=== PATIENT | male | born 1945 | race Caucasian/White ===

== ENCOUNTER 2017-11-06 11:14 | Outpatient (CLI) | payer MEDICARE ==
--- NOTE | 2017-11-06 12:47 | XRAY Report ---
Procedure Date: 11/06/2017 Accession Number: [id number] / [id number] Procedure: XR - Foot 3 View BILAT CPT Code: FULL RESULT: EXAM: Foot 3 View BILAT DATE: 11/06/2017 11:25 AM CLINICAL HISTORY: BL FOOT PAIN TECHNIQUE: 3 views each foot COMPARISON: 04/28/2016 right foot FINDINGS: Right foot: First MTP degenerative changes mildly progressed compared with prior. Increasing soft tissue swelling medially consistent with bunion. Progressive great toe interphalangeal joint degenerative change with joint space narrowing, spurring, and cysts. Scattered degenerative changes of the interphalangeal joints of the toes. Fourth and fifth DIP joint fusion, anatomic variant. No acute fracture, dislocation, or foreign body. Left foot: Mild degenerative change first MTP and IP joints. Scattered degenerative changes of the toes most marked second DIP joint. Cystic erosion second middle phalanx. Fourth and fifth DIP joint fusion, anatomic variant. No acute fracture, foreign body or dislocation. IMPRESSION: Bilateral foot degenerative change as above. No superimposed acute findings.
== END 2017-11-06 11:15 | disposition home or self-care (01) ==
LOC: DI 11:14
PROVIDERS: ATTEND Podiatrist
DX: M19.071 Primary osteoarthritis, right ankle and foot (principal); M19.072 Primary osteoarthritis, left ankle and foot

== ENCOUNTER 2019-08-16 11:45 | Outpatient (CLI) | payer MEDICARE | END 2019-08-16 11:46 | disposition critical access hospital (66) | LOC: EMS 11:45 | PROVIDERS: ATTEND Surgery | DX: M25.571 Pain in right ankle and joints of right foot (principal); M25.572 Pain in left ankle and joints of left foot; M25.562 Pain in left knee; M25.561 Pain in right knee; M25.521 Pain in right elbow | CPT/HCPCS: A0425; A0429 ==

== ENCOUNTER 2019-08-16 12:14 | Emergency (ER) | payer MEDICARE ==
[2019-08-16] MEDS ORDERED: MORPHINE 2 MG/ML CARPUJECT IVP STA (12:34)
--- NOTE | 2019-08-16 12:55 | ED Physician Documentation ---
History of Present Illness - Stated complaint Stated Complaint: GOUT - Chief complaint Chief Complaint: Resp - History obtained from History obtained from: Patient - Additonal information Additional information: Patient is a 74 year old male with a history of HTN and recurrent gout. He is a FULL CODE. He has multiple complaints. He states he has a 1 week history of bilateral knee pain that is consistent with prior gouty episodes. He was given prednisone and about 5 days ago without improvement. He states over the past 2-3 days he has had decreased oral intake secondary to pain with ambulation. Today he was unable to walk secondary to pain. He states he has had chills, but no fevers. No congestion. Has a 5 year history of an unproductive cough he contributes to lisinopril, denies any acute changes. Has no chest pain, dyspnea, or edema. No abdominal pain, nausea, or vomiting. No dysuria. Mr. French states he had surgery on his right elbow at [facility] 6 weeks ago. Has continued pain without acute changes. No swelling or warmth. He lives independently at home. He is a FULL CODE. Review of Systems Constitutional: reports: Chills, Myalgias. denies: Fever, Fatigue, Sweats Eyes: denies: Decreased vision Ears: denies: Loss of hearing, Ear pain, Drainage/discharge Nose: denies: Rhinorrhea / runny nose, Congestion, Sinus pressure / pain Throat: denies: Dental pain / toothache, Oral lesions / sores, Sore throat, Swollen tonsils Cardiac: denies: Chest pain / pressure, Palpitations, Pedal edema, Calf pain Respiratory: reports: Cough. denies: Dyspnea, Hemoptysis, Wheezing GI: denies: Abdominal Pain, Nausea, Vomiting, Diarrhea : denies: Dysuria, Frequency, Hesitancy, Incontinent, Hematuria, Discharge Skin: reports: Other (no itching) Musculoskeletal: denies: Neck pain, Back pain, Extremity pain, Joint pain Neurologic: reports: Generalized weakness. denies: Near syncope, Syncope, Seizure PD PAST MEDICAL HISTORY - Past Medical History Cardiovascular: Hypertension Respiratory: None Endocrine/Autoimmune: None GI: None : None HEENT: None Psych: None Musculoskeletal: Osteoarthritis Derm: None - Past Surgical History Ortho: Knee replacement, Arthroscopic surgery, Other - Present Medications Home Medications: Ambulatory Orders Medication Instructions Recorded Confirmed Amlodipine Besylate [Norvasc] 10 mg PO DAILY 10/13/14 10/17/14 Aspirin/Acetaminophen/Caffeine 2 each PO QID 10/13/14 10/17/14 [Excedrin Extra Strength Caplet] Hydrochlorothiazide 12.5 mg PO DAILY 10/13/14 10/17/14 lisinopriL [Lisinopril] 40 mg PO DAILY 10/13/14 10/17/14 - Allergies Allergies/Adverse Reactions: Allergies Allergy/AdvReac Type Severity Reaction Status Date / Time No Known Drug Allergies Allergy Verified 10/13/14 16:51 PD ED PE NORMAL - General General: Alert and oriented X 3 - HEENT HEENT: Atraumatic, Pharynx benign - Neck Neck: Supple, no meningeal sign - Cardiac Cardiac: RRR - Respiratory Respiratory: No respiratory distress, Clear bilaterally - Abdomen Abdomen: Normal bowel sounds. No: Non tender - Derm Derm: Other (there is diffuse erythematous, blanching, motteling of the torso and all extremeties. ) - Extremities Extremities: Other (There is erythema and edema at the bilateral 2nd toes, no active drainage, or pain with palpation. His knees are cool to touch, no warmth, edema, or erythema. His right eblow to tender. No edema, erythema or ) Results - Vitals Vitals: Vital Signs - 24 hr 08/16/19 08/16/19 08/16/19 12:27 12:59 14:31 Temperature 36.4 C L Heart Rate 95 109 H 94 Respiratory 16 17 20 Rate Blood Pressure 134/72 H 116/69 119/68 O2 Saturation 96 93 96 08/16/19 08/16/19 08/16/19 14:39 15:54 17:52 Temperature Heart Rate 85 90 93 Respiratory 16 21 17 Rate Blood Pressure 116/52 L 151/66 H 156/78 H O2 Saturation 94 96 96 08/16/19 08/16/19 08/16/19 19:00 20:32 20:50 Temperature 37.2 C 39.3 C H Heart Rate 98 95 Respiratory 26 H 22 Rate Blood Pressure 183/73 H 153/75 H O2 Saturation 96 96 08/16/19 21:44 Temperature 37.9 C H Heart Rate 94 Respiratory 24 Rate Blood Pressure 105/64 O2 Saturation 95 Oxygen O2 Source Nasal cannula - Labs Labs: Laboratory Tests 08/16/19 08/16/19 08/16/19 12:35 12:35 12:35 WBC 21.3 H RBC 4.86 Hgb 16.0 Hct 46.2 MCV 95.1 H MCH 32.9 H MCHC 34.6 RDW 15.2 H Plt Count 335 MPV 10.3 Neut # (Auto) Not Reportable Lymph # (Auto) Not Reportable [place]rick # (Auto) Not Reportable Eos # (Auto) Not Reportable Baso # (Auto) Not Reportable Absolute Nucleated RBC Not Reportable Total Counted 100 Band Neuts % (Manual) 25 H Abnorm Lymph % (Manual) 0 Metamyelocytes % 2 H Promyelocytes % 1 H Nucleated RBC % Not Reportable Neutrophils # (Manual) 19.4 H Lymphocytes # (Manual) 0.4 L Monocytes # (Manual) 0.9 Eosinophils # (Manual) 0.0 Basophils # (Manual) 0.0 Differential Comment MANUAL DIFFERENTIAL Platelet Estimate NORMAL (130-450,000) Platelet Morphology NORMAL APPEARANCE RBC Morph Micro Appear NORMAL APPEARANCE Sodium 138 Potassium 3.2 L Chloride 100 L Carbon Dioxide 16 L Anion Gap 22.0 H BUN 90 H* Creatinine 3.6 H Estimated GFR (MDRD) 17 L Glucose 313 H Lactic Acid Uric Acid 14.7 H Calcium 9.4 Total Bilirubin 0.8 AST 33 ALT 25 Alkaline Phosphatase 85 C-React Prot High Sens 555.7 Total Protein 8.7 H Albumin 3.5 Globulin 5.2 H Albumin/Globulin Ratio 0.7 L Urine Color Urine Clarity Urine pH Ur Specific [place] Urine Protein Urine Glucose (UA) Urine Ketones Urine Occult Blood Urine Nitrite Urine Bilirubin Urine Urobilinogen Ur Leukocyte Esterase Urine RBC Urine WBC Ur Squamous Epith Cells Urine Bacteria Urine Culture Comments 08/16/19 08/16/19 08/16/19 14:27 15:39 19:04 WBC RBC Hgb Hct MCV MCH MCHC RDW Plt Count MPV Neut # (Auto) Lymph # (Auto) [place] # (Auto) Eos # (Auto) Baso # (Auto) Absolute Nucleated RBC Total Counted Band Neuts % (Manual) Abnorm Lymph % (Manual) Metamyelocytes % Promyelocytes % Nucleated RBC % Neutrophils # (Manual) Lymphocytes # (Manual) Monocytes # (Manual) Eosinophils # (Manual) Basophils # (Manual) Differential Comment Platelet Estimate Platelet Morphology RBC Morph Micro Appear Sodium Potassium Chloride Carbon Dioxide Anion Gap BUN Creatinine Estimated GFR (MDRD) Glucose Lactic Acid 3.4 H* 3.1 H* Uric Acid Calcium Total Bilirubin AST ALT Alkaline Phosphatase C-React Prot High Sens Total Protein Albumin Globulin Albumin/Globulin Ratio Urine Color YELLOW Urine Clarity CLEAR Urine pH 5.0 Ur Specific [place] 1.025 Urine Protein TRACE Urine Glucose (UA) NEGATIVE Urine Ketones NEGATIVE Urine Occult Blood TRACE-INTA Urine Nitrite NEGATIVE Urine Bilirubin NEGATIVE Urine Urobilinogen 0.2 (NORMAL) Ur Leukocyte Esterase NEGATIVE Urine RBC 0-5 Urine WBC 0-3 Ur Squamous Epith Cells NONE SEEN Urine Bacteria None Seen Urine Culture Comments NOT INDICATED PD MEDICAL DECISION MAKING - ED course Complexity details: reviewed results, re-evaluated patient, considered differential, other (Discussed with attending ER physician. Patient was given 2 boluses of normal saline, will start cefepime. We will repeat his lactic acid after his fluid bolus. Will transfer patient to [facility]. Case discussed with Dr. Presley who will check bed status. He did call back and stated Dr. Rust will accept. Patient was informed of his test results and agrees to the transfer.At the time of transport patient developed a fever and had increased pain. His fever was 102 Fahrenheit orally, his blood pressure is 165/76, his oxygen saturation decreased to 90% on room air. He was placed on 4 L via nasal cannula. A dose of ibuprofen and acetaminophen were provided. A fluid rate of normal saline 120 mL/h was provided. His blood pressure improved to 115/64. Pulse 91. Oxygen saturation 95% on 4 L via nasal cannula. Temp reduced to 108 Fahrenheit orally. Report was provided to [facility].I did speak with her hospitalist we attempted to make a conference call with [facility] however the physician they were not available. They will continue the transfer this time. We can make any changes as needed.) Departure - Departure Disposition: 02 Transfer Acute Care Hosp Clinical Impression: Leukocytosis Condition: Stable
--- NOTE | 2019-08-16 13:36 | XRAY Report ---
Reason: pain, 6 weeks post op Procedure Date: 08/16/2019 Accession Number: [id number] / [id number] Procedure: XR - Elbow 3 View RT CPT Code: Final Report FULL RESULT: EXAM: RIGHT ELBOW RADIOGRAPHY EXAM DATE: 08/16/2019 12:38 PM. CLINICAL HISTORY: Pain. 6 weeks postop after nerve impingement surgery. Unable to flex elbow. COMPARISON: None. TECHNIQUE: 3 views. FINDINGS: Bones: No acute fracture or bony lesion. Prominent osteophytes noted. Joints: No distinct elbow effusion. Calcifications along the lateral humeral condyle may represent intra-articular bodies are the result of prior enthesopathy/ligamentous injury. Multifocal joint space narrowing. No dislocation. Soft Tissues: No radiopaque foreign bodies. IMPRESSION: 1. No acute osseous abnormalities. 2. Degenerative changes of the right elbow. RADIA
--- NOTE | 2019-08-16 13:40 | XRAY Report ---
Reason: pain bilateral 2nd toes Procedure Date: 08/16/2019 Accession Number: [id number] / [id number] Procedure: XR - Toe(s) BILAT CPT Code: Final Report FULL RESULT: EXAM: BILATERAL TOE RADIOGRAPHY EXAM DATE: 08/16/2019 12:46 PM. CLINICAL HISTORY: Pain bilateral 2nd toes. COMPARISON: FOOT 3 VIEW BILAT 11/06/2017 11:17 AM. TECHNIQUE: 3 views. FINDINGS: Bones: No acute fracture or bony lesions involving the right second digit. No distinct bony erosions involving the right second digit. No acute fracture involving the left second digit. Cystic erosive changes are seen particularly involving the left second middle phalanx and a portion of the left second distal phalanx which have progressed with adjacent soft tissue calcific densities. Joints: Degenerative changes of the interphalangeal joints of the right and left second digits. No dislocation. Soft Tissues: Soft tissue swelling of both second digits greatest involving the left. IMPRESSION: 1. No acute fracture. 2. Progression of cystic/ erosive changes involving largely the left second middle phalanx compared to 11/06/2017 which may be due to an infectious/inflammatory or due to inflammatory arthropathy such as gouty arthritis. 3. Degenerative changes. RADIA
--- NOTE | 2019-08-16 13:41 | XRAY Report ---
Reason: chest pain Procedure Date: 08/16/2019 Accession Number: [id number] / [id number] Procedure: XR - Chest 1 View X-Ray CPT Code: 05687 Final Report FULL RESULT: EXAM: CHEST RADIOGRAPHY EXAM DATE: 08/16/2019 12:54 PM. CLINICAL HISTORY: Chest pain. COMPARISON: XR CHEST PA AND LAT 07/12/2009 12:38 PM. TECHNIQUE: 1 view. FINDINGS: Lungs/Pleura: Lung volumes are low. Left basilar opacity. No vascular congestion. No pneumothorax. Mediastinum: Heart is enlarged. Aorta is tortuous. Other: Changes are seen from inferior cervical fusion. IMPRESSION: 1. Hypoventilatory changes with left basilar consolidation/atelectasis. RADIA
[2019-08-16 14:12] LABS: CRP HIGH SENSITIVITY 555.7 mg/L; URIC ACID 14.7 mg/dL (2.6-7.2)
[2019-08-16 14:59] LABS: BILIRUBIN,URINE NEGATIVE (NEGATIVE); GLUCOSE, URINE (UA) NEGATIVE (NEGATIVE); KETONES,URINE (UA) NEGATIVE (NEGATIVE); LEUKOCYTE ESTERASE, URINE NEGATIVE (NEGATIVE); NITRITE,URINE NEGATIVE (NEGATIVE); OCCULT BLOOD,URINE TRACE-INTA (NEGATIVE); PROTEIN,URINE TRACE mg/dL (NEGATIVE); UROBILINOGEN,URINE 0.2 (NORMAL) E.U./dL (NORMAL)
[2019-08-16 15:00] LABS: CLARITY,URINE CLEAR (CLEAR)
[2019-08-16 15:14] LABS: RBC,URINE 0-5 /HPF (0-5)
[2019-08-16 15:15] LABS: BACTERIA,URINE None Seen /HPF (None Seen); SQUAMOUS EPITHELIAL CELL,UR NONE SEEN (<= Few)
[2019-08-16 15:35] LABS: BASOPHILS % (AUTO) 0.8 %; LYMPHOCYTES % (AUTO) 3.1 %; MEAN CORPUSCULAR HEMOGLOBIN 32.9 pg (27.0-31.0); MEAN CORPUSCULAR HGB CONC 34.6 g/dL (32.0-36.0); MEAN CORPUSCULAR VOLUME 95.1 fL (80.0-94.0); MEAN PLATELET VOLUME 10.3 fL (7.4-11.4); PLT - PLATELET COUNT 335 10^3/uL (130-450); RED BLOOD COUNT 4.86 10^6/uL (4.70-6.10); RED CELL DISTRIBUTION WIDTH 15.2 % (12.0-15.0); WHITE BLOOD COUNT 21.3 x10^3/uL (4.8-10.8)
[2019-08-16 15:46] LABS: ABNORMAL LYMPHS % (MANUAL) 0 %; ALBUMIN 3.5 g/dL (3.2-5.5); ALBUMIN/GLOBULIN RATIO 0.7 (1.0-2.2); BILIRUBIN,TOTAL 0.8 mg/dL (0.2-1.0); CALCIUM 9.4 mg/dL (8.5-10.3); CREATININE 3.6 mg/dL (0.6-1.2); TOTAL PROTEIN 8.7 g/dL (6.7-8.2)
[2019-08-16] MEDS ORDERED: SODIUM CHLORIDE 0.9% 1,000 ML IV ONE ×2 (15:59→17:09)
[2019-08-16] MEDS ORDERED: CEFEPIME 2 GM in SODIUM CHLORIDE 0.9% MINIBAG 100 ML IV STA (16:03)
[2019-08-16 16:20] LABS: BAND NEUTROPHILS % (MANUAL) 25 %; LYMPHOCYTES # (MANUAL) 0.4 10^3/uL (1.5-3.5); LYMPHOCYTES % (MANUAL) 2 %; METAMYELOCYTES % (MANUAL) 2 %; MONOCYTES # (MANUAL) 0.9 10^3/uL (0.0-1.0); PROMYELOCYTES % (MANUAL) 1 %; RBC MORPHOLOGY (MULTIPLE) NORMAL APPEARANCE (NORMAL)
[2019-08-16 16:21] LABS: DIFFERENTIAL COMMENT MANUAL DIFFERENTIAL; PLATELET ESTIMATE, MANUAL NORMAL (130-450,000) (NORMAL); PLATELET MORPHOLOGY NORMAL APPEARANCE (NORMAL)
[2019-08-16] MEDS ORDERED: IBUPROFEN 600 MG TABLET PO STA (20:40)
[2019-08-16] MEDS ORDERED: ACETAMINOPHEN 325 MG TABLET PO STA (20:40)
[2019-08-16] MEDS ORDERED: SODIUM CHLORIDE 0.9% 1,000 ML IV SCH (21:00)
[2019-08-16 21:45] VITALS: BP 105/64
== END 2019-08-16 22:20 | disposition short-term general hospital (02) ==
LOC: ED 12:14
DX: D72.829 Elevated white blood cell count, unspecified (principal); I10 Essential (primary) hypertension
CPT/HCPCS: 36415; 71045; 73080; 73660; 80053; 81001; 83605; 84550; 85025; 86141; 87040; 96361; 96365; 96375; 99284; 99285; A9270; 87077; 87086; 87181

== ENCOUNTER 2019-10-12 12:25 | Outpatient (CLI) | payer MEDICARE ==
[2019-10-12 13:32] LABS: BASOPHILS # (AUTO) 0.1 10^3/uL (0.0-0.1); BASOPHILS % (AUTO) 0.9 %; EOSINOPHILS # (AUTO) 0.3 10^3/uL (0.0-0.7); EOSINOPHILS % (AUTO) 4.2 %; LYMPHOCYTES # (AUTO) 2.2 10^3/uL (1.5-3.5); LYMPHOCYTES % (AUTO) 27.6 %; MEAN CORPUSCULAR HEMOGLOBIN 31.2 pg (27.0-31.0); MEAN CORPUSCULAR HGB CONC 31.6 g/dL (32.0-36.0); MEAN CORPUSCULAR VOLUME 98.4 fL (80.0-94.0); MEAN PLATELET VOLUME 9.1 fL (7.4-11.4); MONOCYTES # (AUTO) 0.7 10^3/uL (0.0-1.0); MONOCYTES % (AUTO) 8.1 %; NEUTROPHILS # (AUTO) 4.7 10^3/uL (1.5-6.6); NEUTROPHILS % (AUTO) 58.6 %; PLT - PLATELET COUNT 417 10^3/uL (130-450); RED BLOOD COUNT 3.21 10^6/uL (4.70-6.10); RED CELL DISTRIBUTION WIDTH 16.5 % (12.0-15.0); WHITE BLOOD COUNT 8.1 x10^3/uL (4.8-10.8)
[2019-10-12 13:50] LABS: CALCIUM 9.3 mg/dL (8.5-10.3); CREATININE 1.3 mg/dL (0.6-1.2); CRP - C-REACTIVE PROTEIN 4.1 mg/dL (0-1.0)
== END 2019-10-12 23:59 | disposition home or self-care (01) ==
LOC: LAB.R 12:25
PROVIDERS: ATTEND Family Medicine
DX: M00.09 Staphylococcal polyarthritis (principal)
CPT/HCPCS: 80048; 85025; 86140

== ENCOUNTER 2021-01-25 09:13 | Outpatient (CLI) | payer MEDICARE ==
[2021-01-25 15:39] LABS: ALBUMIN 3.9 g/dL (3.2-5.5); BILIRUBIN,TOTAL 0.7 mg/dL (0.2-1.0); CALCIUM 9.1 mg/dL (8.5-10.3); CREATININE 1.4 mg/dL (0.6-1.2); POTASSIUM 3.1 mmol/L (3.5-5.0); TOTAL PROTEIN 7.8 g/dL (6.7-8.2)
== END 2021-01-25 09:14 | disposition home or self-care (01) ==
LOC: LAB.S 09:13
PROVIDERS: ATTEND Orthopaedic Surgery
DX: Z86.79 Personal history of other diseases of the circulatory system (principal)
CPT/HCPCS: 36415; 80053

== ENCOUNTER 2021-02-01 10:53 | Outpatient (CLI) | payer MEDICARE ==
[2021-02-01 15:44] LABS: BILIRUBIN,TOTAL 0.4 mg/dL (0.2-1.0); CALCIUM 9.6 mg/dL (8.5-10.3); CREATININE 1.3 mg/dL (0.6-1.2); POTASSIUM 3.6 mmol/L (3.5-5.0); TOTAL PROTEIN 7.9 g/dL (6.7-8.2)
== END 2021-02-01 10:54 | disposition home or self-care (01) ==
LOC: LAB.S 10:53
PROVIDERS: ATTEND Nurse Practitioner Family
DX: E87.6 Hypokalemia (principal)
CPT/HCPCS: 36415; 80053

== ENCOUNTER 2021-07-16 12:20 | Outpatient (CLI) | payer MEDICARE ==
[2021-07-16 12:29] LABS: BASOPHILS # (AUTO) 0.1 10^3/uL (0.0-0.1); BASOPHILS % (AUTO) 1.3 %; EOSINOPHILS # (AUTO) 0.8 10^3/uL (0.0-0.7); EOSINOPHILS % (AUTO) 8.1 %; HCT - HEMATOCRIT 35.9 % (42.0-52.0); HGB - HEMOGLOBIN 11.4 g/dL (14.0-18.0); LYMPHOCYTES # (AUTO) 1.7 10^3/uL (1.5-3.5); LYMPHOCYTES % (AUTO) 18.7 %; MEAN CORPUSCULAR HGB CONC 31.8 g/dL (32.0-36.0); MEAN CORPUSCULAR VOLUME 88.2 fL (80.0-94.0); MEAN PLATELET VOLUME 8.8 fL (7.4-11.4); MONOCYTES # (AUTO) 0.7 10^3/uL (0.0-1.0); MONOCYTES % (AUTO) 7.8 %; NEUTROPHILS # (AUTO) 5.9 10^3/uL (1.5-6.6); NEUTROPHILS % (AUTO) 63.5 %; PLT - PLATELET COUNT 473 10^3/uL (130-450); RED BLOOD COUNT 4.07 10^6/uL (4.70-6.10); RED CELL DISTRIBUTION WIDTH 16.9 % (12.0-15.0); WHITE BLOOD COUNT 9.3 x10^3/uL (4.8-10.8)
[2021-07-16 12:36] LABS: CALCIUM 9.1 mg/dL (8.5-10.3); CREATININE 1.3 mg/dL (0.6-1.2); POTASSIUM 3.8 mmol/L (3.5-5.0)
== END 2021-07-16 12:21 | disposition home or self-care (01) ==
LOC: LAB.R 12:20
PROVIDERS: ATTEND Allergy & Immunology
DX: M00.069 Staphylococcal arthritis, unspecified knee (principal); T84.53XD Infection and inflammatory reaction due to internal right knee prosthesis, subsequent encounter
CPT/HCPCS: 80048; 80202; 85025

== ENCOUNTER 2021-07-23 11:55 | Outpatient (CLI) | payer MEDICARE ==
[2021-07-23 17:38] LABS: BASOPHILS # (AUTO) 0.2 10^3/uL (0.0-0.1); BASOPHILS % (AUTO) 1.8 %; EOSINOPHILS # (AUTO) 0.7 10^3/uL (0.0-0.7); EOSINOPHILS % (AUTO) 7.9 %; HCT - HEMATOCRIT 40.1 % (42.0-52.0); HGB - HEMOGLOBIN 12.6 g/dL (14.0-18.0); LYMPHOCYTES # (AUTO) 1.9 10^3/uL (1.5-3.5); LYMPHOCYTES % (AUTO) 21.9 %; MEAN CORPUSCULAR HEMOGLOBIN 27.9 pg (27.0-31.0); MEAN CORPUSCULAR HGB CONC 31.4 g/dL (32.0-36.0); MEAN CORPUSCULAR VOLUME 88.7 fL (80.0-94.0); MONOCYTES # (AUTO) 0.7 10^3/uL (0.0-1.0); MONOCYTES % (AUTO) 7.4 %; NEUTROPHILS # (AUTO) 5.3 10^3/uL (1.5-6.6); NEUTROPHILS % (AUTO) 60.3 %; PLT - PLATELET COUNT 495 10^3/uL (130-450); RED BLOOD COUNT 4.52 10^6/uL (4.70-6.10); RED CELL DISTRIBUTION WIDTH 17.8 % (12.0-15.0); WHITE BLOOD COUNT 8.8 x10^3/uL (4.8-10.8)
== END 2021-07-23 23:59 | disposition home or self-care (01) ==
LOC: LAB.R 11:55
PROVIDERS: ATTEND Allergy & Immunology
DX: M00.00 Staphylococcal arthritis, unspecified joint (principal); M00.069 Staphylococcal arthritis, unspecified knee; T84.53XD Infection and inflammatory reaction due to internal right knee prosthesis, subsequent encounter
CPT/HCPCS: 80053; 85025

== ENCOUNTER 2021-07-30 15:56 | Outpatient (CLI) | payer MEDICARE ==
[2021-07-30 16:32] LABS: BASOPHILS # (AUTO) 0.1 10^3/uL (0.0-0.1); BASOPHILS % (AUTO) 1.3 %; EOSINOPHILS # (AUTO) 0.6 10^3/uL (0.0-0.7); EOSINOPHILS % (AUTO) 7.7 %; HCT - HEMATOCRIT 40.1 % (42.0-52.0); HGB - HEMOGLOBIN 12.7 g/dL (14.0-18.0); LYMPHOCYTES # (AUTO) 1.7 10^3/uL (1.5-3.5); MEAN CORPUSCULAR HGB CONC 31.7 g/dL (32.0-36.0); MEAN CORPUSCULAR VOLUME 88.5 fL (80.0-94.0); MEAN PLATELET VOLUME 9.3 fL (7.4-11.4); MONOCYTES # (AUTO) 0.7 10^3/uL (0.0-1.0); MONOCYTES % (AUTO) 7.9 %; NEUTROPHILS # (AUTO) 5.3 10^3/uL (1.5-6.6); NEUTROPHILS % (AUTO) 62.7 %; PLT - PLATELET COUNT 365 10^3/uL (130-450); RED BLOOD COUNT 4.53 10^6/uL (4.70-6.10); RED CELL DISTRIBUTION WIDTH 18.6 % (12.0-15.0); WHITE BLOOD COUNT 8.4 x10^3/uL (4.8-10.8)
[2021-07-30 16:48] LABS: ALBUMIN 3.7 g/dL (3.2-5.5); ALBUMIN/GLOBULIN RATIO 1.2 (1.0-2.2); BILIRUBIN,TOTAL 0.3 mg/dL (0.2-1.0); CALCIUM 9.6 mg/dL (8.5-10.3); CREATININE 1.2 mg/dL (0.6-1.2); POTASSIUM 3.3 mmol/L (3.5-5.0); TOTAL PROTEIN 6.9 g/dL (6.7-8.2)
== END 2021-07-30 15:57 | disposition home or self-care (01) ==
LOC: LAB.R 15:56
PROVIDERS: ATTEND Allergy & Immunology
DX: M00.00 Staphylococcal arthritis, unspecified joint (principal); M00.069 Staphylococcal arthritis, unspecified knee; T84.53XD Infection and inflammatory reaction due to internal right knee prosthesis, subsequent encounter
CPT/HCPCS: 80053; 85025

== ENCOUNTER 2021-08-06 15:32 | Outpatient (CLI) | payer MEDICARE ==
[2021-08-06 15:39] LABS: BASOPHILS # (AUTO) 0.1 10^3/uL (0.0-0.1); BASOPHILS % (AUTO) 1.2 %; EOSINOPHILS # (AUTO) 0.8 10^3/uL (0.0-0.7); EOSINOPHILS % (AUTO) 10.3 %; HCT - HEMATOCRIT 39.9 % (42.0-52.0); HGB - HEMOGLOBIN 12.6 g/dL (14.0-18.0); LYMPHOCYTES % (AUTO) 26.9 %; MEAN CORPUSCULAR HEMOGLOBIN 27.8 pg (27.0-31.0); MEAN CORPUSCULAR HGB CONC 31.6 g/dL (32.0-36.0); MEAN CORPUSCULAR VOLUME 87.9 fL (80.0-94.0); MEAN PLATELET VOLUME 9.3 fL (7.4-11.4); MONOCYTES # (AUTO) 0.7 10^3/uL (0.0-1.0); MONOCYTES % (AUTO) 9.1 %; NEUTROPHILS # (AUTO) 3.8 10^3/uL (1.5-6.6); NEUTROPHILS % (AUTO) 52.2 %; PLT - PLATELET COUNT 283 10^3/uL (130-450); RED BLOOD COUNT 4.54 10^6/uL (4.70-6.10); RED CELL DISTRIBUTION WIDTH 18.6 % (12.0-15.0); WHITE BLOOD COUNT 7.3 x10^3/uL (4.8-10.8)
[2021-08-06 15:58] LABS: ALBUMIN 3.5 g/dL (3.2-5.5); ALBUMIN/GLOBULIN RATIO 1.1 (1.0-2.2); BILIRUBIN,TOTAL 0.2 mg/dL (0.2-1.0); CALCIUM 9.2 mg/dL (8.5-10.3); CREATININE 1.2 mg/dL (0.6-1.2); POTASSIUM 3.4 mmol/L (3.5-5.0); TOTAL PROTEIN 6.8 g/dL (6.7-8.2)
== END 2021-08-06 15:33 | disposition home or self-care (01) ==
LOC: LAB.R 15:32
PROVIDERS: ATTEND Allergy & Immunology
DX: M00.00 Staphylococcal arthritis, unspecified joint (principal); M00.069 Staphylococcal arthritis, unspecified knee; T84.53XD Infection and inflammatory reaction due to internal right knee prosthesis, subsequent encounter
CPT/HCPCS: 80053; 85025

== ENCOUNTER 2021-10-10 11:35 | Outpatient (CLI) | payer MEDICARE ==
[2021-10-10 14:49] LABS: BASOPHILS # (AUTO) 0.1 10^3/uL (0.0-0.1); BASOPHILS % (AUTO) 1.7 %; EOSINOPHILS # (AUTO) 0.4 10^3/uL (0.0-0.7); EOSINOPHILS % (AUTO) 5.1 %; HCT - HEMATOCRIT 46.8 % (42.0-52.0); HGB - HEMOGLOBIN 15.3 g/dL (14.0-18.0); LYMPHOCYTES # (AUTO) 2.8 10^3/uL (1.5-3.5); LYMPHOCYTES % (AUTO) 33.9 %; MEAN CORPUSCULAR HGB CONC 32.7 g/dL (32.0-36.0); MEAN CORPUSCULAR VOLUME 85.7 fL (80.0-94.0); MEAN PLATELET VOLUME 10.2 fL (7.4-11.4); MONOCYTES # (AUTO) 0.7 10^3/uL (0.0-1.0); MONOCYTES % (AUTO) 8.6 %; NEUTROPHILS # (AUTO) 4.2 10^3/uL (1.5-6.6); NEUTROPHILS % (AUTO) 50.5 %; PLT - PLATELET COUNT 305 10^3/uL (130-450); RED BLOOD COUNT 5.46 10^6/uL (4.70-6.10); RED CELL DISTRIBUTION WIDTH 17.9 % (12.0-15.0); WHITE BLOOD COUNT 8.3 x10^3/uL (4.8-10.8)
[2021-10-10 14:58] LABS: ALBUMIN 4.4 g/dL (3.2-5.5); ALBUMIN/GLOBULIN RATIO 1.2 (1.0-2.2); ALKALINE PHOSPHATASE 96 IU/L (42-121); ALT ALANINE AMINOTRANSFERASE 25 IU/L (10-60); AST ASPARTATE AMINOTRANSFERASE 26 IU/L (10-42); BILIRUBIN,TOTAL 0.6 mg/dL (0.2-1.0); BUN - BLOOD UREA NITROGEN 23 mg/dL (6-20); CALCIUM 9.7 mg/dL (8.5-10.3); CARBON DIOXIDE - CO2 25 mmol/L (21-32); CHLORIDE 104 mmol/L (101-111); CREATININE 1.5 mg/dL (0.6-1.2); GFR - MDRD 45 (>89); GLUCOSE 104 mg/dL (70-100); POTASSIUM 3.4 mmol/L (3.5-5.0); SODIUM 142 mmol/L (135-145); TOTAL PROTEIN 8.2 g/dL (6.7-8.2)
[2021-10-10 15:11] LABS: BILIRUBIN,URINE NEGATIVE (NEGATIVE); GLUCOSE, URINE (UA) NEGATIVE (NEGATIVE); KETONES,URINE (UA) NEGATIVE (NEGATIVE); LEUKOCYTE ESTERASE, URINE NEGATIVE (NEGATIVE); NITRITE,URINE NEGATIVE (NEGATIVE); OCCULT BLOOD,URINE NEGATIVE (NEGATIVE); PROTEIN,URINE >=300 mg/dL (NEGATIVE); UROBILINOGEN,URINE 0.2 (NORMAL) E.U./dL (NORMAL)
[2021-10-10 15:23] LABS: CRP - C-REACTIVE PROTEIN < 1.0 mg/dL (0-1.0)
[2021-10-10 15:40] LABS: CLARITY,URINE CLEAR (CLEAR)
[2021-10-10 17:28] LABS: BACTERIA,URINE Rare /HPF (None Seen); EPITHELIAL CELLS,UR RARE Transitional /HPF (<= Few); RBC,URINE None Seen /HPF (0-5); SQUAMOUS EPITHELIAL CELL,UR NONE SEEN (<= Few); WBC,URINE 0-3 /HPF (0-3)
== END 2021-10-10 11:36 | disposition home or self-care (01) ==
LOC: LAB.S 11:35
PROVIDERS: ATTEND Orthopaedic Surgery
DX: Z01.818 Encounter for other preprocedural examination (principal); M25.561 Pain in right knee; I10 Essential (primary) hypertension; T84.59XA Infection and inflammatory reaction due to other internal joint prosthesis, initial encounter; Z96.659 Presence of unspecified artificial knee joint
CPT/HCPCS: 36415; 80053; 81001; 85025; 85651; 86140; 87086

== ENCOUNTER 2022-08-04 09:17 | Outpatient (CLI) | payer MEDICARE ==
--- NOTE | 2022-08-04 12:01 | XRAY Report ---
PROCEDURE: Chest 2 View X-Ray INDICATIONS: DYSPNEA ON EXERTION TECHNIQUE: 2 views of the chest were acquired. COMPARISON: None. FINDINGS: Surgical changes and devices: Fusion hardware in visualized mid to lower cervical spine is seen. Lungs and pleura: No pleural effusions or pneumothorax. Lungs are clear. Mediastinum: Aortic arch calcifications are noted. Heart size is enlarged.. Bones and chest wall: No suspicious bony abnormalities. Soft tissues appear unremarkable. IMPRESSION: No acute cardiopulmonary pathology. Reviewed by: Joseph Blanton MD on 08/04/2022 11:00 AM [facility] Approved by: Joseph Blanton MD on 08/04/2022 11:00 AM [facility] Station ID: [id number]
== END 2022-08-04 09:18 | disposition home or self-care (01) ==
LOC: DI.S 09:17
PROVIDERS: ATTEND Nurse Practitioner Family
DX: R06.09 Other forms of dyspnea (principal)

== ENCOUNTER 2024-01-11 08:06 | Outpatient (CLI) | payer MEDICARE ==
--- NOTE | 2024-01-11 11:48 | Ultrasound Report ---
PROCEDURE: Abdomen Complete INDICATIONS: ABD PAIN TECHNIQUE: Real-time scanning was performed of the abdominal and retroperitoneal organs, with image documentatio n. COMPARISON: None. FINDINGS: Liver: Liver is normal in size and heterogeneous in echotexture. Gallbladder: There is sludge present within the patient's gallbladder and gallbladder wall is mildly thickened at 4 mm. If further evaluation for chronic cholecystitis is of clinical concern a HIDA scan with ejection fraction may be of further clinical value. Biliary ducts: Intrahepatic bile ducts are non-dilated. Extrahepatic bile duct caliber measures 4 m m. Normal is 6-7 mm or less in diameter, or 10 mm or less post-cholecystectomy. Pancreas: Visualized portions of the pancreas are sonographically normal. Spleen: Spleen is normal in size and homogeneous in echotexture. Kidneys: Kidneys are normal in size and echotexture. Right kidney measures 12.2 cm long; left kidne y measures 10.5 cm long. No hydronephrosis or nephrolithiasis. No solid masses. No complex renal cy stic lesions which require follow-up. Aorta: Visualized aorta is normal in caliber at less than 3 cm. Iliacs: Proximal common iliac arteries are normal in caliber at less than 2.5 cm. IVC: Intrahepatic inferior vena cava is patent. Miscellaneous: No free abdominal fluid. IMPRESSION: Slight present within the patient's gallbladder and a mildly thickened gallbladder wall at 4 mm. If f urther evaluation for chronic cholecystitis is of concern a HIDA scan with ejection fraction may be o f further clinical value. Reviewed by: Zhou Trotter MD on 01/11/2024 11:47 AM PDT Approved by: Zhou Trotter MD on 01/11/2024 11:47 AM PDT Station ID: [id number]
== END 2024-01-11 08:07 | disposition home or self-care (01) ==
LOC: DI 08:06
PROVIDERS: ATTEND Nurse Practitioner Family
DX: R10.9 Unspecified abdominal pain (principal)